=== PATIENT | male | born 1975 | race African-American/Black ===

== ENCOUNTER 2017-05-11 10:42 | Outpatient (CLI) | END 2017-05-11 10:43 | disposition short-term general hospital (02) | LOC: AMBL 10:42 | PROVIDERS: ATTEND Emergency Medicine | DX: M25.532 Pain in left wrist (principal); S62.102A Fracture of unspecified carpal bone, left wrist, initial encounter for closed fracture; V28.4XXA Motorcycle driver injured in noncollision transport accident in traffic accident, initial encounter; I10 Essential (primary) hypertension ==